=== PATIENT | male | born 1980 | race Native Hawaiian/Other Pacific Islander ===

== ENCOUNTER 2019-12-15 09:05 | Inpatient (IN) | payer BC ==
[~2019-12-15] VITALS: Ht 185.4 cm; Wt 108.9 kg
[~2019-12-15 09:05] MED LIST: AZOR1 TA1 PO; AZOR1 TAB PO; CELEXA10 MG PO; MELATONIN PO
[2019-12-15 11:30] LABS: PLATELET COUNT 206 K/uL (142-355)
[2019-12-15 14:21] VITALS: BP 127/80; TEMP 99; Ht 185.4 cm; Wt 108.9 kg
[2019-12-15 16:00] VITALS: BP 129/78; TEMP 99.9
[2019-12-15] MEDS ORDERED: ASCORBIC ACD500 MG PO (18:38)
[2019-12-15] MEDS ORDERED: ASPIRIN ADULT325 MG PO (18:39)
[2019-12-15] MEDS ORDERED: BYSTOLIC5 MG PO (18:40)
[2019-12-15] MEDS ORDERED: VITAMIN D125 MCG PO (18:40)
[2019-12-15] MEDS ORDERED: CITALOPRAM10 M1 PO (18:41)
[2019-12-15] MEDS ORDERED: ESCITALOPRAM10 MG PO (18:41)
[2019-12-15] MEDS ORDERED: FAMOTIDINE40 MG PO (18:42)
[2019-12-15] MEDS ORDERED: PULMICORT180 MCG/AC PO (18:48)
[2019-12-15] MEDS ORDERED: TADALAFIL5 MG PO (18:49)
[2019-12-15] MEDS ORDERED: TESSALON PER100 MG PO (18:50)
[2019-12-15] MEDS ORDERED: ZINC SULFATE220 M2 PO (18:50)
[2019-12-15 20:00] VITALS: BP 128/70; TEMP 98.3
[2019-12-16] VITALS (7 sets, daily range): BP systolic 106–135; BP diastolic 61–88; TEMP 97.6–98.6
[2019-12-16 04:47] LABS: PLATELET COUNT 166 K/uL (142-355)
[2019-12-16 05:32] LABS: POTASSIUM 3.8 mmol/L (3.6-5.2)
[2019-12-17 03:34] VITALS: BP 120/75; TEMP 98.5
[2019-12-17 04:35] LABS: PLATELET COUNT 168 K/uL (142-355)
[2019-12-17 05:14] LABS: POTASSIUM 4.6 mmol/L (3.6-5.2)
[2019-12-17 08:00] VITALS: BP 125/85; TEMP 97.6
[2019-12-17 12:00] VITALS: BP 141/90; TEMP 97.6
[2019-12-17 13:09] LABS: POTASSIUM 5.1 mmol/L (3.6-5.2)
[2019-12-17 16:00] VITALS: BP 130/78; TEMP 97.7
[2019-12-17 20:22] VITALS: BP 152/88; TEMP 97.5
[2019-12-17 23:47] VITALS: BP 142/82; TEMP 97.5
[2019-12-18 03:33] VITALS: BP 118/72; TEMP 97.5
[2019-12-18 05:24] LABS: PLATELET COUNT 175 K/uL (142-355)
[2019-12-18 08:00] VITALS: BP 139/79; TEMP 97.7
[2019-12-18 12:00] VITALS: BP 146/89; TEMP 97.7
[2019-12-18 16:00] VITALS: BP 146/82; TEMP 97.8
[2019-12-18 20:00] VITALS: BP 139/87; TEMP 98.2
[2019-12-19] VITALS: BP 128/72; TEMP 97.8
[2019-12-19 04:00] VITALS: BP 128/69; TEMP 97.8
[2019-12-19 06:07] LABS: PLATELET COUNT 203 K/uL (142-355)
[2019-12-19 08:00] VITALS: BP 127/82; TEMP 98.1
[2019-12-19 12:00] VITALS: BP 131/84; TEMP 98.7
[2019-12-19 16:00] VITALS: BP 131/85; TEMP 98.7
[2019-12-19 20:12] VITALS: BP 146/59; TEMP 98
== END 2019-12-19 17:00 | disposition home or self-care (01) | DRG 177 ==
LOC: MED/SURG 09:05
PROVIDERS: ADMIT Family Medicine
DX: U07.1 COVID-19 (principal); J18.8 Other pneumonia, unspecified organism; E46 Unspecified protein-calorie malnutrition; G47.09 Other insomnia; F32.89 Other specified depressive episodes; I10 Essential (primary) hypertension; R74.8 Abnormal levels of other serum enzymes; R51 Headache; E86.0 Dehydration
CPT/HCPCS: 36415; 36600; 80053; 80074; 82565; 82728; 82805; 83735; 83880; 84100; 84450; 84460; 85027; 85379; 86140; 87040; 93005; 94667; 94668; 94760; J0456; J0696; J1100; J1650; J1885; J2270; J2550

== ENCOUNTER 2019-12-28 13:35 | Outpatient (CLI) | payer BC ==
[~2019-12-28 13:35] MED LIST changes: +ASCORBIC ACD500 MG PO; +ASPIRIN ADULT325 MG PO; +BYSTOLIC5 MG PO; +CITALOPRAM10 M1 PO; +ESCITALOPRAM10 MG PO; +FAMOTIDINE40 MG PO; +PULMICORT180 MCG/AC PO; +TADALAFIL5 MG PO; +TESSALON PER100 MG PO; +VITAMIN D125 MCG PO; +ZINC SULFATE220 M2 PO
== END 2019-12-28 23:04 | disposition home or self-care (01) ==
LOC: LABW 13:35
DX: R19.7 Diarrhea, unspecified (principal)
CPT/HCPCS: 83630; 87015; 87045; 87324; 87328; 87329; 87449; 87899

== ENCOUNTER 2020-12-19 08:52 | Outpatient (CLI) | payer BC | END 2020-12-19 21:43 | disposition home or self-care (01) | LOC: RAD 08:52 | PROVIDERS: ATTEND Family Medicine | DX: R06.00 Dyspnea, unspecified (principal) ==